=== PATIENT | female | born 1985 | race Caucasian/White ===

== ENCOUNTER 2018-12-17 08:48 | Emergency (ER) | payer OTHER ==
[2018-12-17 08:54] VITALS: BP 92/68
--- NOTE | 2018-12-17 09:46 | EDPHY ---
H & P Stated Complaint: r leg pain hip to ankle/rash/does give self b12 inj Source: Patient Exam Limitations: No limitations - Personal History LMP (Females 10-55): 8-14 Days Ago Current Tetanus Diphtheria and Acellular Pertussis (TDAP): Yes - Medical/Surgical History Hx Asthma: No Hx Chronic Respiratory Disease: No Hx Diabetes: No Hx Cardiac Disease: No Hx Renal Disease: No Hx Cirrhosis: No Hx Alcoholism: No Hx HIV/AIDS: No Hx Splenectomy or Spleen Trauma: No Other PMH: denies - Social History Smoking Status: Never smoked Time Seen by Provider: 12/17/18 09:45 HPI/ROS: HPI: This is a 33-year-old female who presents with Chief Complaint: r leg pain hip to ankle/rash/does give self b12 inj Location: Right leg, hip Quality: Pain, rash Duration: 24 hr Signs and Symptoms: No bleeding, no radiation, no numbness, no weakness, no tingling, no incontinence, no decreased range of motion, no swelling, + burning pain pain, no fever Timing: Acute, worsening Severity: [id number] Context: Patient is generally healthy, reports cold-like symptoms last week, presents with sudden onset of rash on the inside of her leg times 24 hr. She reports that 2 days ago she started to feel a burning pain on the right side of her lumbar back and hip area and then 24 hr later developed a rash on the right medial leg from the ankle up into the thigh. She describes clusters of whitish lesions. She describes the pain as burning in nature. She had chickenpox as a child. Denies vision changes, fever, skin warmth, scan discharge. She complains of feeling fatigued but denies a headache. Denies photophobia. Modifying Factors: Comment: ROS: A comprehensive 10 system review of systems is otherwise negative aside from elements mentioned in the history of present illness. MEDICAL/SURGICAL/SOCIAL HISTORY: Medical history: Generally healthy. Does not take any regular medications. LMP 1-2 weeks ago. Surgical history: Denies Social history: Never smoked. . CONSTITUTIONAL: Well-developed, well-nourished, nontoxic-appearing adult white female, awake and alert, no obvious distress HEENT: Atraumatic and normocephalic. Pupils equal and reactive to light. Extraocular movements intact. NECK: supple, no midline tenderness, flexion 45 degrees, extension 45 degrees, right and left lateral flexion 45 degrees. No meningismus. Cardiovascular: Normal S1/S2, regular rate, regular rhythm, without murmur rub or gallop. PULMONARY/CHEST: Symmetrical and nontender. Clear to auscultation bilaterally. Good air movement. No accessory muscle usage. ABDOMEN: Soft, nondistended, nontender. EXTREMITIES: 2/2 pulses, strength 5/5, DIP/PIP/MCP flexion/extension intact with good light touch sensation. no deformities, no clubbing, no cyanosis or edema. NEUROLOGICAL: no focal neuro deficits. GCS 15. Light touch sensation intact. SKIN: Warm and dry, maculopapular rash with small clear like vesicles in 5 different scattered patches on the right medial leg from the ankle up into the thigh area sparing the groin. No rash on face or chest.. Good capillary refill. (Anisah Castaneda) Constitutional: Initial Vital Signs Temperature (C) 37 C 12/17/18 08:52 Heart Rate 83 12/17/18 08:52 Respiratory Rate 18 12/17/18 08:52 Blood Pressure 92/68 L 12/17/18 08:52 O2 Sat (%) 98 12/17/18 08:52 O2 Delivery Mode Room Air Allergies/Adverse Reactions: tree nuts Allergy (Uncoded 12/17/18 08:51) Anaphylaxis Home Medications: Medication Instructions Recorded Acyclovir 800 mg PO 5XD #35 tab 12/17/18 B-12 Dual Spectrum 12/17/18 Gabapentin [Gralise] 300 mg PO HS 7 Days tab.er.24h 12/17/18 Medical Decision Making ED Course/Re-evaluation: Patient is immunocompetent. No signs of dissemination, afebrile, herpes zoster ophthalmicus or herpes zoster oticus. Lesions are consistent with herpes zoster in a dermatomal pattern. Patient given acyclovir and gabapentin. Discussed contact precautions, wound care She is to follow up with her PCP next week. No signs of neurovascular compromise/tenting of skin/compartment syndrome/ extremities and joints examined above and below area of concern and are neurovascularly intact/cellulitis. This patient was seen under the supervision of my secondary supervising physician. I evaluated care for this patient independently. (Anisha Castaneda) The patient was evaluated and managed by the physician curriculum assistant. I have reviewed this chart and I agree with the findings and plan of care as documented , as indicated by my signature. I am the secondary supervising physician. ( Clare Win) Differential Diagnosis: Differential diagnosis includes but is not limited to varicella, small pox, DIC , necrotizing fasciitis, [id number] disease, bullous pemphigoid, erythema multiforme major, contact dermatitis, herpes zoster, poison oak/jacqueline/sumac, herpes zoster. (Anisha Castaneda) Departure - Departure Disposition: Home, Routine, Self-Care Clinical Impression: Shingles rash Condition: Good Instructions: Shingles (ED) Additional Instructions: Wash the site daily with mild soap and water; then pat dry. Apply topical antibiotic ointment daily to prevent secondary infection. Please avoid scratching or itching the area. Take Tylenol 650 mg every 4 hours and/or Ibuprofen 600 mg every 8 hours with food as needed for pain. Take gabapentin at night for the next several days for pain. Take antiviral as directed. Follow-up with primary care provider in the next 5-7 days. Referrals: Zoe Heredia MD [Primary Care Provider] - As per Instructions Prescriptions: Acyclovir 800 mg PO 5XD #35 tab Gabapentin [Gralise] 300 mg PO HS 7 Days tab.er.24h
[2018-12-17] MEDS ORDERED: ONDANSETRON 4 MG/2 ML VIAL ONE (09:54)
== END 2018-12-17 10:16 | disposition home or self-care (01) ==
DX: B02.9 Zoster without complications (principal)
CPT/HCPCS: J2405